=== PATIENT | male | born 1990 | race Caucasian/White ===

== ENCOUNTER 2017-01-21 12:01 | Day surgery (SDC) | payer OTHER ==
[2017-01-13 18:38] VITALS: BMI 25.0
[2017-01-21] MEDS ORDERED: ROCURONIUM BROMIDE 50 MG/5 ML VIAL ONE (13:18)
[2017-01-21] MEDS ORDERED: PROPOFOL 20 ML ONE (13:18)
[2017-01-21] MEDS ORDERED: fentaNYL CITRATE 250 MCG/5 ML VIAL ONE (13:35)
[2017-01-21] MEDS ORDERED: MIDAZOLAM HCL 2 MG/2 ML SINGLE DOSE VIAL ONE (13:36)
[2017-01-21] MEDS ORDERED: NEOSTIGMINE METHYLSULFATE 0.5 MG/ML - 10 ML MDV ONE (13:39)
[2017-01-21] MEDS ORDERED: COCAINE HCL 4% TOPICAL SOLUTION 4 ML BOTTLE TP ONE (13:42)
[2017-01-21] MEDS ORDERED: OXYMETAZOLINE 0.05% NASAL SOLUTION 15 ML BOTTLE NS ONE (13:42)
[2017-01-21] MEDS ORDERED: LIDOCAINE 1%/EPI 1:100000 (20 ML MULTI DOSE VIAL) ONE (13:42)
[2017-01-21] MEDS ORDERED: oxyCODONE HCL 5 MG TABLET PO PRN (16:14)
[2017-01-21 17:42] VITALS: PULSE 56; TEMP 97.5
[2017-01-21 18:03] VITALS: BP 132/78
--- NOTE | 2017-01-22 13:24 | OP ---
DATE OF OPERATION: 01/21/2017 LOCATION: [facility] [place] PREOPERATIVE DIAGNOSES: Deviated nasal septum and bilateral inferior turbinate hypertrophy. POSTOPERATIVE DIAGNOSES: Deviated nasal septum and bilateral inferior turbinate hypertrophy. PROCEDURE: Septoplasty and bilateral inferior turbinectomies. SURGEON: Nabil Campos MD ANESTHESIA: General endotracheal by . INDICATIONS: The patient is a 26-year-old man with chronic nasal obstruction refractory to medical management, who requests surgical correction. Physical examination reveals a severe left-sided deviated nasal septum and bilateral inferior turbinate hypertrophy. The nature and purpose of the proposed procedure as well as the risks, benefits, alternatives, and possible complications were discussed in detail with the patient who appears to understand and wishes to proceed with surgery. All questions were answered, and an informed consent was given by the patient. PROCEDURE DESCRIPTION: With the patient under general endotracheal anesthesia, in the supine position with his back slightly raised, he was prepped and draped in the usual sterile fashion. The nose was injected with 3 mL of 1% lidocaine with epinephrine 1:100,000, and then, 4% cocaine on cottonoid pledgets was placed. After waiting several minutes, the pledgets were removed, and the procedure was begun by performing Coblation submucosal cautery on both inferior turbinates on an ablation setting of 6, making 3 lesions in each of 2 passes on each side. The anteroinferior portion of each inferior turbinate was then sharply resected and suction cauterized and then bluntly outfractured. The septum was addressed through a left-sided Pa incision. A left-sided septal flap was raised with inadvertent perforations over the areas of greatest deflection. Through this, an oblique incision was made on the septal cartilage, taking care to leave a 1.5-cm caudal strut intact. Through the oblique incision, a right-sided mucosal flap was raised with minimal inadvertent perforations that were non-overlapping on the left. There was a resection of deflected portions of septal bone and cartilage. Some hemostasis was achieved with suction cautery. The septum was then closed with quilting sutures and simple stapler, and the Pa incision was closed with 4-0 chromic. Fibrillar Surgicel was then placed against the raw edge of each inferior turbinate, and Telfa gauze with bacitracin ointment was placed in each nasal cavity. A nasal tip dressing was then placed. When the patient awakened, he was extubated and discharged to the recovery room in satisfactory condition. ESTIMATED BLOOD LOSS: 100 mL COMPLICATIONS: None. NABIL CAMPOS M.D. SKYLER/[id number]
== END 2017-01-21 17:20 | disposition home or self-care (01) ==
LOC: FASU 12:01
PROVIDERS: ATTEND Otolaryngology
PROC: 09TL7ZZ Resection of Nasal Turbinate, Via Natural or Artificial Opening (ICD-10-PCS; principal; 2017-01-21 14:14)
PROC: 09BM8ZZ Excision of Nasal Septum, Via Natural or Artificial Opening Endoscopic (ICD-10-PCS; 2017-01-21 14:14)
DX: J34.2 Deviated nasal septum (principal); J34.3 Hypertrophy of nasal turbinates